=== PATIENT | female | born 1985 | race Caucasian/White ===

== ENCOUNTER 2017-12-28 12:45 | Emergency (ER) | payer MEDICAID ==
[~2017-12-28] VITALS: Ht 165.1 cm; Wt 106.8 kg
[~2017-12-28 12:45] MED LIST: ETON1VAG VG; FLUO20CA39 PO
[2017-12-28 13:15] LABS: CLARITY,URINE CLOUDY (Clear); GLUCOSE, URINE NEGATIVE (Neg); KETONES,URINE 15 mg/dl (Neg); LEUKOCYTE ESTERASE ,URINE NEGATIVE (Neg); NITRITES, URINE NEGATIVE (Neg); OCCULT BLOOD,URINE LARGE (Neg); PROTEIN,URINE 30 mg/dl (Neg); UROBILINOGEN,URINE 0.2 E.U/dL (0.2-1.0)
[2017-12-28 13:16] LABS: COLOR,URINE AMBER (Yellow); UA COLLECTION TYPE CLN CATCH MIDSTREAM
[2017-12-28 13:18] LABS: BASOPHILS % (AUTO) 0.1 % (0-1); EOSINOPHILS % (AUTO) 0 % (0-6); HEMATOCRIT 33.2 % (35.0-45.0); HEMOGLOBIN 11.1 g/dl (12.0-16.0); LYMPHOCYTES # (AUTO) 1.5 X10'3 (1.1-4.8); LYMPHOCYTES % (AUTO) 10.4 % (21-51); MEAN CORPUSCULAR HEMOGLOBIN 26.6 PG (27.0-31.0); MEAN CORPUSCULAR HGB CONC 33.5 % (33.0-36.5); MEAN CORPUSCULAR VOLUME 79.2 FL (78-98); MEAN PLATELET VOLUME 7.8 FL (7.4-10.4); MONOCYTES # (AUTO) 0.6 X10'3 (0-0.9); NEUTROPHILS # (AUTO) 11.9 X10'3 (1.8-7.7); NEUTROPHILS % (AUTO) 85.5 % (42-75); PLATELET COUNT 419 X10'3 (140-440); RED BLOOD COUNT 4.19 X10'6 (4.20-5.60); RED CELL DISTRIBUTION WIDTH 14.9 % (11.5-14.5)
[2017-12-28 13:21] LABS: BACTERIA,URINE 1+ /HPF (Neg); MUCUS STRANDS MANY /LPF (Neg); RBC,URINE 20-50 /HPF (0-2); SQUAMOUS EPITHELIAL CELL,UR MANY /LPF (FEW); WBC,URINE 0-4 /HPF (0-4)
[2017-12-28] MEDS ORDERED: normal saline 1000ML IV soln IVB ONE (13:25)
[2017-12-28] MEDS ORDERED: ondansetron/PF 4mg/2ml inj IV ONE ×2 (13:25→14:35)
[2017-12-28] MEDS ORDERED: morphine 4 MG/ML inj SYRINge IV PRN (13:25)
[2017-12-28 13:33] LABS: ALANINE AMINOTRANSFERASE 17 U/L (12-78); ALBUMIN 3.7 G/DL (3.4-5.0); ALBUMIN/GLOBULIN RATIO 0.9 (1.1-1.5); ALKALINE PHOSPHATASE 86 IU/L (46-116); ANION GAP 12 (8-16); ASPARTATE AMINO TRANSFERASE 20 U/L (10-37); BILIRUBIN,TOTAL 0.4 MG/DL (0.1-1.0); BLOOD UREA NITROGEN 13 MG/DL (7-18); BUN/CREATININE RATIO 16.3 (6.6-38.0); CALCIUM 9.1 MG/DL (8.5-10.1); CHLORIDE 104 MMOL/L (99-107); GLUCOSE 118 MG/DL (70-104); POTASSIUM 3.6 MMOL/L (3.5-5.1); SODIUM 139 MMOL/L (135-145); TOTAL CARBON DIOXIDE 23.1 MMOL/L (24-32); TOTAL PROTEIN 7.8 G/DL (6.4-8.2); eGFR 83 ML/MIN
[2017-12-28] MEDS: diatr meglu/diatrizoate 30ml oral sol.-(3 dose) bottle PO SCH ×3 (14:26→15:36)
[2017-12-28] MEDS ORDERED: morphine 4 MG/ML inj SYRINge IV ONE (14:35)
[2017-12-28] MEDS ORDERED: iohexol 300mg/ml 100ml inj. ONE (15:35)
[2017-12-28] MEDS ORDERED: proCHLORperazine 10 MG/2 ml inj IV ONE (16:30)
[2017-12-28] MEDS ORDERED: PROC25SU31 RC (16:38)
[2017-12-28] MEDS ORDERED: ONDA4TAB9 SL (16:38)
[2017-12-28 16:59] VITALS: BP 122/70
== END 2017-12-28 17:00 | disposition home or self-care (01) ==
LOC: ER 12:45
DX: K52.9 Noninfective gastroenteritis and colitis, unspecified (principal); Z79.899 Other long term (current) drug therapy
CPT/HCPCS: 36415; 74177; 80053; 81001; 85025; 85610; 96361; 96374; 96375; 96376; 99285; J0780; J2270; J2405; J7030; Q9963; Q9967

== ENCOUNTER 2020-02-14 17:08 | Emergency (ER) | payer MEDICAID ==
[~2020-02-14] VITALS: Ht 165.1 cm; Wt 150.0 kg
[2020-02-14 17:12] VITALS: BP 118/74
== END 2020-02-14 18:06 | disposition home or self-care (01) ==
LOC: ER 17:09
DX: Z03.818 Encounter for observation for suspected exposure to other biological agents ruled out (principal); J06.9 Acute upper respiratory infection, unspecified; F17.200 Nicotine dependence, unspecified, uncomplicated; Z98.890 Other specified postprocedural states; Z90.49 Acquired absence of other specified parts of digestive tract; Z72.89 Other problems related to lifestyle
CPT/HCPCS: 36415; 99281; 99283

== ENCOUNTER 2020-08-23 10:08 | Emergency (ER) | payer MEDICAID, OTHER ==
[~2020-08-23] VITALS: Ht 165.1 cm; Wt 111.3 kg
[2020-08-23 10:10] VITALS: BP 117/80
[2020-08-23] MEDS ORDERED: ketorolac trometh inj. 60 MG/2 ML VIAL IM ONE (10:30)
[2020-08-23] MEDS ORDERED: ORPH100T2 PO (10:34)
[2020-08-23] MEDS ORDERED: HYDR-3965 PO (10:34)
== END 2020-08-23 10:53 | disposition home or self-care (01) ==
LOC: ER 10:08
DX: S29.012A Strain of muscle and tendon of back wall of thorax, initial encounter (principal); S16.1XXA Strain of muscle, fascia and tendon at neck level, initial encounter; R51.9 Headache, unspecified; M54.2 Cervicalgia; Z98.890 Other specified postprocedural states; Z72.89 Other problems related to lifestyle; Z79.899 Other long term (current) drug therapy; V89.2XXA Person injured in unspecified motor-vehicle accident, traffic, initial encounter; Y93.89 Activity, other specified; Y92.89 Other specified places as the place of occurrence of the external cause; Y99.8 Other external cause status
CPT/HCPCS: 96372; 99283; J1885

== ENCOUNTER 2023-07-26 11:25 | Emergency (ER) | payer SELFPAY ==
[~2023-07-26] VITALS: Ht 165.1 cm; Wt 93.6 kg
[~2023-07-26 11:25] MED LIST changes: -ETON1VAG VG; +ETON1VAG14 VG; +ORPH100T4 PO
[2023-07-26] MEDS ORDERED: IBUP-1986 PO (12:41)
[2023-07-26 12:48] VITALS: BP 134/92; PULSE 69; RESP 16; TEMP 98.1; O2SAT 99
== END 2023-07-26 15:00 | disposition home or self-care (01) ==
LOC: ER 11:25
DX: M25.511 Pain in right shoulder (principal); Z72.89 Other problems related to lifestyle; Z98.891 History of uterine scar from previous surgery; Z98.84 Bariatric surgery status; Z79.899 Other long term (current) drug therapy
CPT/HCPCS: 73030; 99283

== ENCOUNTER 2024-09-28 11:54 | Emergency (ER) | payer SELFPAY ==
[~2024-09-28] VITALS: Ht 165.1 cm; Wt 96.3 kg
[~2024-09-28 11:54] MED LIST changes: +BUS15T PO; +FER325T PO; +IBUP-1986 PO
[2024-09-28 12:05] VITALS: BP 144/98; PULSE 93; O2SAT 99
[2024-09-28] MEDS: benzocaine (Anbesol) 12ml bottle MM ONE (13:17)
[2024-09-28] MEDS: ketorolac trometh 15mg/ml vial 15 MG/ML ML IM ONE (13:17)
[2024-09-28] MEDS ORDERED: RIFA300C65 PO (13:29)
[2024-09-28] MEDS ORDERED: CHLO473M2 PO (13:29)
[2024-09-28 14:00] VITALS: RESP 16; TEMP 98.1
== END 2024-09-28 14:05 | disposition home or self-care (01) ==
LOC: ER 11:54
DX: K04.7 Periapical abscess without sinus (principal); Z98.84 Bariatric surgery status; Z98.890 Other specified postprocedural states
CPT/HCPCS: 96372; 99283; J1885